=== PATIENT | female | born 1935 | race Caucasian/White ===

== ENCOUNTER → 2017-01-30 | Outpatient (CLI) | payer MEDICARE, OTHER ==
[~2017-01-30] MED LIST: ALBU8.5H3 INH; ASPI-515 PO; AZEL137S4 NAS; BENZ100C4 PO; CALC-192 PO; CETI10CA PO; DILT180C53 PO; EPIN0.3P3 IM; ERGO2000 PO; ESOM40CA PO; FISH1CAP PO; FLUT9.9S NAS; HYDR-3241 PO; HYDR12.53 PO; LOTE5DRO2 EACHEYE; MOME13HF INH; MONT10TA9 PO; ROSU5TAB PO; TIOT18CA INH; VIT1CAPS11 PO
[2017-01-30 16:26] LABS: BLOOD UREA NITROGEN 17 mg/dL (7-18)
[2017-01-30 16:30] LABS: ASPARTATE AMINO TRANSFERASE 21 U/L (15-37)
== END | disposition home or self-care (01) ==
LOC: CFH 14:17 → EDSTATUS 14:30
PROVIDERS: ATTEND Family Medicine
DX: Z13.820 Encounter for screening for osteoporosis (principal); M81.0 Age-related osteoporosis without current pathological fracture; I12.9 Hypertensive chronic kidney disease with stage 1 through stage 4 chronic kidney disease, or unspecified chronic kidney disease; N18.3 Chronic kidney disease, stage 3 (moderate); E03.9 Hypothyroidism, unspecified; J84.10 Pulmonary fibrosis, unspecified
CPT/HCPCS: 36415; 77080; 80053; 82306; 83036; 85025

== ENCOUNTER → 2017-04-11 | Outpatient (CLI) | payer MEDICARE, OTHER ==
[~2017-04-11] MED LIST changes: -ALBU8.5H3 INH; +ALBU8.5H8 INH; +BENZ100C17 PO; -BENZ100C4 PO; +REGADENOSON 0.4 MG/5 ML SYRINGE ONE
== END | disposition home or self-care (01) ==
LOC: CFH 08:06
PROVIDERS: ATTEND Internal Medicine Cardiovascular Disease
DX: Z01.810 Encounter for preprocedural cardiovascular examination (principal); R94.31 Abnormal electrocardiogram [ECG] [EKG]; R07.9 Chest pain, unspecified
CPT/HCPCS: 78452; 93017; A9502; J2785

== ENCOUNTER 2019-11-17 17:20 | Emergency (ER) | payer MEDICARE, OTHER ==
[~2019-11-17] VITALS: Ht 167.6 cm; Wt 78.0 kg
[~2019-11-17 17:20] MED LIST changes: +BENZ-17 PO; -BENZ100C17 PO; +HYDR12.517 PO; -HYDR12.53 PO; +MONT10TA11 PO; -MONT10TA9 PO; -REGADENOSON 0.4 MG/5 ML SYRINGE ONE
[2019-11-17] MEDS ORDERED: SODIUM CHLORIDE FLUSH 10ML SYR IVF ONE (17:30)
[2019-11-17 17:49] LABS: BASOPHILS # (AUTO) 0.01 x10^3/uL (0-0.1); BASOPHILS % (AUTO) 0 % (0-1); EOSINOPHILS # (AUTO) 0.18 x10^3/uL (0-0.4); EOSINOPHILS % (AUTO) 2 % (1-7); LYMPHOCYTES # (AUTO) 1.01 x10^3/uL (1-3.4); LYMPHOCYTES % (AUTO) 10 % (22-44); MD NO; MEAN CORPUSCULAR HEMOGLOBIN 32.4 pg (27.0-34.8); MEAN CORPUSCULAR HGB CONC 33.6 g/dL (32.4-35.8); MEAN CORPUSCULAR VOLUME 96.5 fL (80-100); MEAN PLATELET VOLUME 7.3 fL (7.4-10.4); MONOCYTES # (AUTO) 0.62 x10^3/uL (0.2-0.8); MONOCYTES % (AUTO) 6 % (2-9); NEUTROPHILS # (AUTO) 8.01 x10^3/uL (1.8-6.8); NEUTROPHILS % (AUTO) 82 % (42-75); PLATELET COUNT 239 x10^3/uL (130-400); RED BLOOD COUNT 3.45 x10^6/uL (3.82-5.3); RED CELL DISTRIBUTION WIDTH 13.9 % (9.6-15.2)
[2019-11-17 17:56] LABS: INTERNATIONAL NORMALIZED RATIO 0.96 (0.93-1.1); PROTHROMBIN TIME 10.2 Seconds (9.6-11.5)
[2019-11-17 17:58] LABS: ALBUMIN 3.4 g/dL (3.4-5.0); ANION GAP 9 mmol/L (5-15); CALCIUM 8.7 mg/dL (8.5-10.1); CHLORIDE 94 mmol/L (98-107); CREATININE 0.88 mg/dL (0.55-1.02)
[2019-11-17] MEDS ORDERED: CYCL-259 PO (18:12)
[2019-11-17] MEDS ORDERED: PRED10TA PO (18:12)
[2019-11-17] MEDS ORDERED: LOSA25TA12 PO (18:12)
[2019-11-17] MEDS ORDERED: SPIR25TA5 PO (18:12)
[2019-11-17] MEDS ORDERED: LEVO25TA4 PO (18:12)
[2019-11-17] MEDS ORDERED: ALEN70TA6 PO (18:12)
[2019-11-17] MEDS ORDERED: OMEP40CA42 PO (18:12)
[2019-11-17] MEDS ORDERED: NASACORT INH (18:12)
[2019-11-17] MEDS ORDERED: EPIN0.3A3 IM (18:12)
[2019-11-17] MEDS ORDERED: HYDR12.517 PO (18:12)
[2019-11-17] MEDS ORDERED: MELA1TAB22 PO (18:12)
[2019-11-17] MEDS ORDERED: METO-282 PO (18:12)
[2019-11-17] MEDS ORDERED: BENZ200C48 PO (18:12)
[2019-11-17] MEDS ORDERED: FLUT1BLS3 INH (18:12)
[2019-11-17] MEDS ORDERED: GABA300C10 PO (18:12)
[2019-11-17 19:30] VITALS: BP 164/92
[2019-11-17] MEDS ORDERED: HYDROmorphone 1 MG/ML, 1ML INJ ONE (20:04)
[2019-11-17] MEDS ORDERED: ONDANSETRON 2MG/ML, 2ML ONE (20:04)
--- NOTE | 2019-11-17 20:19 | NUR ---
Report called to Vel JONES at [facility]
[2019-11-17] MEDS ORDERED: HYDROmorphone 2 MG/ML, 1ML IVPush PRN (20:30)
[2019-11-17] MEDS ORDERED: ONDANSETRON 2MG/ML, 2ML IVPush ONE (20:30)
--- NOTE | 2019-11-17 20:33 | NUR ---
[facility] here for transfer to [facility]
== END 2019-11-17 20:58 | disposition short-term general hospital (02) ==
LOC: ED 18:14
DX: S27.0XXA Traumatic pneumothorax, initial encounter (principal); S22.41XA Multiple fractures of ribs, right side, initial encounter for closed fracture; J44.9 Chronic obstructive pulmonary disease, unspecified; I10 Essential (primary) hypertension; Z87.891 Personal history of nicotine dependence; W01.0XXA Fall on same level from slipping, tripping and stumbling without subsequent striking against object, initial encounter; Y93.89 Activity, other specified; Y92.009 Unspecified place in unspecified non-institutional (private) residence as the place of occurrence of the external cause; Y99.8 Other external cause status
CPT/HCPCS: 36415; 71045; 71250; 80048; 82040; 85025; 85610; 85730; 96374; 96375; 99285; J1170; J2405

== ENCOUNTER 2020-12-07 09:01 | Day surgery (SDC) | payer MEDICARE, OTHER ==
[~2020-12-07] VITALS: Ht 170.2 cm; Wt 75.0 kg
[~2020-12-07 09:01] MED LIST changes: +ALEN70TA77 PO; -ASPI-515 PO; +ASPI-963 PO; +BENZ200C48 PO; +CYCL10TA2 PO; +EPIN0.3A3 IM; +FLUT1BLS3 INH; +GABA300C10 PO; +LEVO25TA4 PO; +LOSA25TA12 PO; +MELA1TAB22 PO; +METO-282 PO; -MONT10TA11 PO; +MONT10TA17 PO; +NASACORT INH; +OMEP40CA42 PO; +PRED10TA PO; +SPIR25TA5 PO
[2020-12-07] MEDS ORDERED: FLUT1BLS3 IH (09:51)
[2020-12-07] MEDS ORDERED: ALBU5SOL6 NEB (09:51)
[2020-12-07] MEDS ORDERED: Vitamin D PO (09:51)
[2020-12-07] MEDS ORDERED: FURO20TA3 PO (09:51)
[2020-12-07] MEDS ORDERED: LIDOCAINE-MPF 1%, 5ML ONE (09:53)
[2020-12-07] MEDS ORDERED: FENTANYL PF 100 MCG/2ML ONE (09:53)
[2020-12-07] MEDS ORDERED: MIDAZOLAM 1 MG/ML, 2ML ONE (09:53)
[2020-12-07] MEDS ORDERED: ROSU5TAB PO (09:54)
[2020-12-07] MEDS ORDERED: DIPHENHYDRAMINE 50 MG/ML, 1ML ONE (09:57)
[2020-12-07 09:59] LABS: BASOPHILS % (AUTO) 1 % (0-1); EOSINOPHILS % (AUTO) 2 % (1-7); LYMPHOCYTES % (AUTO) 15 % (22-44); MEAN CORPUSCULAR HEMOGLOBIN 32.1 pg (27.0-34.8); MEAN CORPUSCULAR HGB CONC 33.7 g/dL (32.4-35.8); MEAN PLATELET VOLUME 7.3 fL (7.4-10.4); MONOCYTES % (AUTO) 8 % (2-9); NEUTROPHILS % (AUTO) 75 % (42-75); PLATELET COUNT 252 x10^3/uL (130-400); RED BLOOD COUNT 3.78 x10^6/uL (3.82-5.3); RED CELL DISTRIBUTION WIDTH 14.7 % (9.6-15.2)
[2020-12-07 10:00] VITALS: BP 136/76
[2020-12-07] MEDS ORDERED: DIPHENHYDRAMINE 50 MG/ML, 1ML IVPush ONE (10:00)
[2020-12-07 10:07] LABS: ANION GAP 6 mmol/L (5-15); CALCIUM 9.2 mg/dL (8.5-10.1); CHLORIDE 106 mmol/L (98-107); CREATININE 0.91 mg/dL (0.55-1.02); INTERNATIONAL NORMALIZED RATIO 0.99 (0.93-1.1); MD NO; PROTHROMBIN TIME 10.6 Seconds (9.6-11.5)
== END 2020-12-07 13:15 | disposition home or self-care (01) ==
LOC: CACL 09:01
PROVIDERS: ATTEND Internal Medicine Cardiovascular Disease
DX: I27.23 Pulmonary hypertension due to lung diseases and hypoxia (principal); Z79.82 Long term (current) use of aspirin; Z79.899 Other long term (current) drug therapy; Z88.2 Allergy status to sulfonamides; Z88.8 Allergy status to other drugs, medicaments and biological substances; Z88.1 Allergy status to other antibiotic agents; Z91.030 Bee allergy status; Z72.89 Other problems related to lifestyle; Z87.891 Personal history of nicotine dependence; Z79.01 Long term (current) use of anticoagulants
CPT/HCPCS: 36415; 80048; 82803; 83880; 85025; 85610; 93451; 99156; 99157; C1894; J1200; J2250; J3010

== ENCOUNTER → 2021-03-03 | Outpatient (CLI) | payer MEDICARE, OTHER ==
[~2021-03-03] MED LIST changes: +DOCU50LI23 NEB; +FLUT1BLS3 IH; +FURO20TA3 PO; -OMEP40CA42 PO; +OMEP40CA8 PO; +Vitamin D PO
[2021-03-03 13:44] LABS: ANION GAP 7 mmol/L (5-15); CALCIUM 8.9 mg/dL (8.5-10.1); CHLORIDE 103 mmol/L (98-107); CREATININE 0.81 mg/dL (0.55-1.02)
== END | disposition home or self-care (01) ==
LOC: LAB 13:16
PROVIDERS: ATTEND Internal Medicine Cardiovascular Disease
DX: C44.92 Squamous cell carcinoma of skin, unspecified (principal); D51.9 Vitamin B12 deficiency anemia, unspecified; D64.9 Anemia, unspecified; E03.9 Hypothyroidism, unspecified; E55.9 Vitamin D deficiency, unspecified; E66.9 Obesity, unspecified; E78.2 Mixed hyperlipidemia; E87.1 Hypo-osmolality and hyponatremia; E87.8 Other disorders of electrolyte and fluid balance, not elsewhere classified
CPT/HCPCS: 36415; 80048; 83880